=== PATIENT | female | born 1980 | race African-American/Black ===

== ENCOUNTER 2018-07-18 15:19 | Emergency (ER) | payer MEDICAID ==
[~2018-07-18] VITALS: Ht 167.6 cm; Wt 74.8 kg
[2018-07-18 15:13] VITALS: BP 135/96
[2018-07-18] MEDS ORDERED: LORazepam Inj 2mg/ml 1ml IV ONE ×2 (15:45→17:00)
[2018-07-18 16:17] LABS: APPEARANCE,URINE SLIGHTLY CLOUDY; BILIRUBIN, URINE NEGATIVE (NEGATIVE); COLOR,URINE BROWN; GLUCOSE, URINE (UA) NEGATIVE (NEGATIVE); KETONES,URINE 2+ (NEGATIVE); LEUKOCYTE ESTERASE ,URINE 2+ (NEGATIVE); NITRITE,URINE NEGATIVE (NEGATIVE); PH,URINE 6.5 (4.5-8.0); PROTEIN,URINE 4+ (NEGATIVE); UROBILINOGEN,URINE 1 MG/DL (0.0-1.0)
[2018-07-18 16:26] LABS: HEMOGLOBIN 11.3 G/DL (12.0-16.0); MEAN CORPUSCULAR VOLUME 86 FL (80-99); PLATELET COUNT 76 K/UL (150-450); RED BLOOD COUNT 4.19 M/UL (4.20-5.40); RED CELL DISTRIBUTION WIDTH 19.1 % (11.6-14.8); WHITE BLOOD COUNT 3.8 K/UL (4.8-10.8)
--- NOTE | 2018-07-18 16:29 | Emergency Room Report ---
History of Present Illness General Chief Complaint: Seizure Source: Patient, EMS Present Illness HPI 38-year-old female presents ED for evaluation. Patient is status post seizure. Witnessed at home today. Patient fell and hit her head. Denies any incontinence. Denies any tongue injury. Patient states that her hand is still shaking. Notes she drinks alcohol every single day. Denies drug use. Denies any headache. Denies any chest pain or shortness of breath. Denies any. No other aggravating relieving factors. Denies any other associated symptoms Allergies: Coded Allergies: UNABLE TO ASSESS (Unverified , 07/18/18) PT STATED "I DON'T REMEMBER" Patient History Past Medical History: seizures Past Surgical History: none Pertinent Family History: none Social History: Reports: alcohol use; Denies: smoking, drug use Last Menstrual Period: 07/07/18 Now: No Immunizations: UTD Reviewed Nursing Documentation: PMH: Agreed; PSxH: Agreed Nursing Documentation-PMH Past Medical History: No History, Except For Hx Cerebrovascular Accident: No - SUBSTANCE ABUSE Hx Seizures: Yes Review of Systems All Other Systems: negative except mentioned in HPI Physical Exam Vital Signs Date Time Temp Pulse Resp B/P (MAP) Pulse Ox O2 Delivery O2 Flow Rate FiO2 07/18/18 15:03 99.0 62 14 132/85 99 Room Air Sp02 EP Interpretation: reviewed, normal General Appearance: no apparent distress, alert, GCS 15, non-toxic Head: normocephalic, atraumatic Eyes: bilateral eye normal inspection, bilateral eye PERRL ENT: hearing grossly normal, normal pharynx, no angioedema, normal voice Neck: full range of motion, supple/symm/no masses Respiratory: chest non-tender, lungs clear, normal breath sounds, speaking full sentences Cardiovascular #1: regular rate, rhythm, no edema Cardiovascular #2: 2+ carotid (R), 2+ carotid (L), 2+ radial (R), 2+ radial (L) , 2+ dorsalis pedis (R), 2+ dorsalis pedis (L) Gastrointestinal: normal bowel sounds, non tender, soft, non-distended, no guarding, no rebound Rectal: deferred Genitourinary: normal inspection, no CVA tenderness Musculoskeletal: back normal, gait/station normal, normal range of motion, non- tender Neurologic: alert, oriented x3, responsive, motor strength/tone normal, sensory intact, speech normal Psychiatric: judgement/insight normal, mood/affect normal, no suicidal/ homicidal ideation, anxious Reflexes: 3+ bicep (R), 3+ bicep (L), 3+ tricep (R), 3+ tricep (L), 3+ knee (R) , 3+ knee (L) Skin: normal color, no rash, warm/dry, well hydrated Lymphatic: no adenopathy Medical Decision Making Diagnostic Impression: Primary Impression: Alcohol withdrawal seizure Qualified Codes: F10.239 - Alcohol dependence with withdrawal, unspecified; R56.9 - Unspecified convulsions Additional Impressions: Hypokalemia UTI (urinary tract infection) Qualified Codes: N39.0 - Urinary tract infection, site not specified ER Course Hospital Course 38-year-old female presents ED complaining of shaking, stating she is in withdrawal. had seizure today with head injury Differential diagnoses include: Alcohol intoxication, drug abuse, opioid withdrawal, alcohol withdrawal, dehydration, drug seeking behavior Clinical course Patient placed on stretcher. On monitoring tech. After initial history and physical I ordered labs, IV fluids, Ativan, CT head Labs reviewed- K 2.7, hemoglobin/hematocrit stable, no leukocytosis, alcohol level negative, aspirin/Tylenol levels negative, U. tox negative CT head negative Patient given multiple rounds of Ativan with symptoms improved. Patient continues to be tremulous with episodes of tachycardia. Patient would benefit from inpatient admission. Because of insurance patient will be transferred i. I feel this is a highly complex case requiring extensive working including EKG/Rhythm strip, Xray/CT/US, Blood/urine lab work, repeat exams while in ED, and administration of strong opiates/narcotics for pain control, admission to hospital or close patient follow up. Diagnosis - alcohol withdrawal seizure, hypokalemia, UTI transferred in serious condition Labs Test 07/18/18 16:00 White Blood Count 3.8 K/UL (4.8-10.8) Red Blood Count 4.19 M/UL (4.20-5.40) Hemoglobin 11.3 G/DL (12.0-16.0) Hematocrit 36.0 % (37.0-47.0) Mean Corpuscular Volume 86 FL (80-99) Mean Corpuscular Hemoglobin 26.9 PG (27.0-31.0) Mean Corpuscular Hemoglobin Concent 31.2 G/DL (32.0-36.0) Red Cell Distribution Width 19.1 % (11.6-14.8) Platelet Count 76 K/UL (150-450) Mean Platelet Volume 8.1 FL (6.5-10.1) Neutrophils (%) (Auto) % (45.0-75.0) Lymphocytes (%) (Auto) % (20.0-45.0) Monocytes (%) (Auto) % (1.0-10.0) Eosinophils (%) (Auto) % (0.0-3.0) Basophils (%) (Auto) % (0.0-2.0) Differential Total Cells Counted 100 Neutrophils % (Manual) 86 % (45-75) Lymphocytes % (Manual) 12 % (20-45) Monocytes % (Manual) 2 % (1-10) Eosinophils % (Manual) 0 % (0-3) Basophils % (Manual) 0 % (0-2) Band Neutrophils 0 % (0-8) Platelet Estimate Decreased Platelet Morphology Normal Anisocytosis 2+ Urine Color Brown Urine Appearance Slightly cloudy Urine pH 6.5 (4.5-8.0) Urine Specific [place] 1.010 (1.005-1.035) Urine Protein 4+ (NEGATIVE) Urine Glucose (UA) Negative (NEGATIVE) Urine Ketones 2+ (NEGATIVE) Urine Blood 5+ (NEGATIVE) Urine Nitrite Negative (NEGATIVE) Urine Bilirubin Negative (NEGATIVE) Urine Urobilinogen 1 MG/DL (0.0-1.0) Urine Leukocyte Esterase 2+ (NEGATIVE) Urine RBC 2-4 /HPF (0 - 2) Urine WBC 2-4 /HPF (0 - 2) Urine Squamous Epithelial Cells Moderate /LPF (NONE/OCC) Urine Bacteria Moderate /HPF (NONE) Urine HCG, Qualitative Negative (NEGATIVE) Sodium Level 134 MMOL/L (136-145) Potassium Level 2.7 MMOL/L (3.5-5.1) Chloride Level 95 MMOL/L (98-107) Carbon Dioxide Level 27 MMOL/L (21-32) Anion Gap 12 mmol/L (5-15) Blood Urea Nitrogen 6 mg/dL (7-18) Creatinine 0.8 MG/DL (0.55-1.30) Estimat Glomerular Filtration Rate > 60 mL/min (>60) Glucose Level 108 MG/DL (74-106) Calcium Level 9.2 MG/DL (8.5-10.1) Total Bilirubin 0.9 MG/DL (0.2-1.0) Aspartate Amino Transf (AST/SGOT) 130 U/L (15-37) Alanine Aminotransferase (ALT/SGPT) 37 U/L (12-78) Alkaline Phosphatase 131 U/L (46-116) Total Protein 9.4 G/DL (6.4-8.2) Albumin 3.4 G/DL (3.4-5.0) Globulin 6.0 g/dL Albumin/Globulin Ratio 0.6 (1.0-2.7) Salicylates Level 3.0 ug/mL (2.8-20) Urine Opiates Screen Negative (NEGATIVE) Acetaminophen Level < 2 MCG/ML (10-30) Urine Barbiturates Screen Negative (NEGATIVE) Phencyclidine (PCP) Screen Negative (NEGATIVE) Urine Amphetamines Screen Negative (NEGATIVE) Urine Benzodiazepines Screen Negative (NEGATIVE) Urine Cocaine Screen Negative (NEGATIVE) Urine Marijuana (THC) Screen Negative (NEGATIVE) Serum Alcohol < 3 mg/dL CT/MRI/US Diagnostic Results CT/MRI/US Diagnostic Results : Imaging Test Ordered: CT Head Impression no acute process Last Vital Signs Date Time Temp Pulse Resp B/P (MAP) Pulse Ox O2 Delivery O2 Flow Rate FiO2 07/18/18 15:13 92 14 Room Air 07/18/18 15:13 100.1 135/96 98 Status: improved Disposition: XFER SHT-TRM HOSP Condition: Serious John Kennedy MD Jul 18, 2018 16:29
[2018-07-18 16:34] LABS: ALANINE AMINOTRANSFERASE 37 U/L (12-78); ALBUMIN 3.4 G/DL (3.4-5.0); ALBUMIN/GLOBULIN RATIO 0.6 (1.0-2.7); ALKALINE PHOSPHATASE 131 U/L (46-116); ANION GAP 12 mmol/L (5-15); ASPARTATE AMINO TRANSFERASE 130 U/L (15-37); BILIRUBIN,TOTAL 0.9 MG/DL (0.2-1.0); BLOOD UREA NITROGEN 6 mg/dL (7-18); CALCIUM 9.2 MG/DL (8.5-10.1); CARBON DIOXIDE 27 MMOL/L (21-32); CHLORIDE 95 MMOL/L (98-107); CREATININE 0.8 MG/DL (0.55-1.30); SODIUM 134 MMOL/L (136-145)
--- NOTE | 2018-07-18 16:34 | Diagnostic Imaging Report ---
Indication: Fall, pain, seizure Technique: Continuous helical CT scanning of the head was performed without intravenous contrast material. Axial and coronal 5 mm sections were generated. Radiation dose was minimized using automated exposure control Dose: Total Dose Length Product - DLP 2111.[address] Dose Index - CTDIvol(s) 70.38,70.38 mGy. Comparison: none Findings: The ventricular system is normal in size and configuration. There is no shift of midline structures. No abnormal extra-axial fluid collections are noted. There is no evidence of intracerebral bleeding. No other abnormal high or low density areas are noted within the brain. The visualized sinuses are clear. The visualized orbits are unremarkable. The mastoids are clear. The calvarium is intact. The chery-white differentiation is normal. Impression: Normal CT scan of the head without contrast material. The CT scanner at [facility] is accredited by the [employer] and the scans are performed using protocols designed to limit radiation exposure to as low as reasonably achievable to attain images of sufficient resolution adequate for diagnostic evaluation.
[2018-07-18 16:38] LABS: POTASSIUM 2.7 MMOL/L (3.5-5.1)
[2018-07-18] MEDS ORDERED: cefTRIAXone 1 GM in NS 55 ML IVPB ONE (17:00)
[2018-07-18 17:09] VITALS: BP 122/90
[2018-07-18 20:10] VITALS: BP 130/87
[2018-07-18 20:30] VITALS: BP 130/87
== END 2018-07-18 20:30 | disposition short-term general hospital (02) ==
LOC: EDBD 15:19 → EMR 15:50
DX: F10.239 Alcohol dependence with withdrawal, unspecified (principal); R56.9 Unspecified convulsions; E87.6 Hypokalemia; N39.0 Urinary tract infection, site not specified
CPT/HCPCS: 36415; 70450; 80053; 80307; 80329; 81003; 81025; 85007; 85025; 87086; 96361; 96365; 96375; 99285; J0696; J8499

== ENCOUNTER 2019-10-17 06:02 | Day surgery (SDC) | payer MEDICAID ==
--- NOTE | 2019-10-15 11:48 | Opthalmology H&P ---
Ophthalmology H&P H&P Chief Complaint: decreased vision in left eye HPI Vision Affects Ability to: read, focus/use eyes together, manage personal affairs Past Ocular History: retinal problems - PRD OU HPI Narrative Blurry vision Exam Visual Acuity: OD 20/60 OS Counting Fingers Tension: OD 16 OS 16 Eye Exam: normal OU: external exam, palpebral fissure-width, marginal reflex distance, levator function, corneas, anterior chambers, fundus exam; findings: lens - NS OD, NS/PSC OS Assessment/Plan Treatment Plan: cataract extraction w/ lens implant - left eye Goals of Treatment: improvement of vision, enhance quality of life Attestation Attestation The risks and benefits of the surgery as well as alternative procedures were explained to the patient in detail. Julius Rush MD Oct 15, 2019 11:48
--- NOTE | 2019-10-15 11:52 | Pre-Procedure Note/Attestation ---
Pre-Procedure Note/Attestation Complete Prior to Procedure Planned Procedure: left Procedure Narrative: Cataract Extraction With Intraocular Lens Implant Left Eye Indications for Procedure Pre-Operative Diagnosis: Nuclear sclerotic/Posterior subcapsular cataract left eye Attestation I attest that I discussed the nature of the procedure; its benefits; risks and complications; and alternatives (and the risks and benefits of such alternatives ), prior to the procedure, with the patient (or the patient's legal car sales representative). I attest that, if there was a reasonable possibility of needing a blood transfusion, the patient (or the patient's legal car sales representative) was given the [facility] standardized written summary, pursuant to the Shlomo Cardiff Blood Safety Act ([place] Health and Safety Code # 1645, as amended). I attest that I re-evaluated the patient just prior to the surgery and that there has been no change in the patient's H&P, except as documented below: Julius Rush MD Oct 15, 2019 11:52
[~2019-10-17] VITALS: Ht 167.6 cm; Wt 55.3 kg
[2019-10-17] VITALS (9 sets, daily range): BP systolic 104–129; BP diastolic 52–85
[2019-10-17] MEDS ORDERED: Dexamethasone 4mg/ml vial ONE (07:00)
[2019-10-17] MEDS ORDERED: prednisoLONE acetate 1% Opth Susp 1ml ONE (07:00)
[2019-10-17] MEDS ORDERED: Tetracaine 0.5% Opth 4ml Soln LEFT EYE ONE (07:00)
[2019-10-17] MEDS ORDERED: Diclofenac Sod 0.1% Op Soln LEFT EYE SCH (07:00)
[2019-10-17] MEDS ORDERED: Polysporin Oint 15gm TOPIC ONE (07:00)
[2019-10-17] MEDS ORDERED: Akten 3.5% 1ml Btl LEFT EYE ONE (07:00)
[2019-10-17] MEDS ORDERED: Proparacaine 0.5% Opth Soln 15ml LEFT EYE ONE (07:00)
[2019-10-17] MEDS ORDERED: EPINEPHrine 1mg/1ml Amp ONE (07:23)
[2019-10-17] MEDS ORDERED: acetaZOLAMIDE 500mg Inj ONE (07:23)
[2019-10-17] MEDS ORDERED: Lidocaine 4% Amp 5ml ONE (07:23)
[2019-10-17] MEDS ORDERED: Lidocaine 2% MPF 5ml Vial INJ ONE (07:23)
[2019-10-17] MEDS ORDERED: Carbachol 0.01% Op Soln 1.5ml vial ONE (07:23)
[2019-10-17] MEDS ORDERED: BSS 500ml btl ONE (07:24)
[2019-10-17] MEDS ORDERED: BSS 15ml BTL ONE (07:24)
[2019-10-17] MEDS ORDERED: Povidone-Iodine 5% opth solution ONE (07:24)
[2019-10-17] MEDS ORDERED: Sodium Hyaluronate 10 mg/ml 0.85ml ONE ×2 (07:24→10:01)
[2019-10-17] MEDS ORDERED: Bupivacaine 0.75% 30ml vial INJ ONE (07:24)
[2019-10-17] MEDS: Tropicamide 1% Opth 15ml Soln LEFT EYE SCH ×3 (07:43→08:04)
[2019-10-17] MEDS: Cyclopentolate 1% Opth Sol 2ml LEFT EYE SCH ×3 (07:43→08:03)
[2019-10-17] MEDS: Tobramycin Op Soln 0.3% 5ml LEFT EYE SCH ×3 (07:43→08:04)
[2019-10-17] MEDS: Phenylephrine 10% Opth Soln 5ml LEFT EYE SCH ×3 (07:44→08:04)
[2019-10-17] MEDS ORDERED: IBUPROFEN600 MG ORAL (08:02)
[2019-10-17] MEDS ORDERED: LEXAPRO10 MG ORAL (08:02)
[2019-10-17] MEDS ORDERED: TOPAMAX25 MG ORAL (08:02)
[2019-10-17] MEDS ORDERED: IRON325 M1 PO (08:02)
[2019-10-17] MEDS ORDERED: GENVOYA TABLET1 EACH PO (08:02)
[2019-10-17] MEDS ORDERED: Midazolam 2mg/2ml Inj ONE (08:14)
[2019-10-17] MEDS ORDERED: LR 1000ml ONE (09:00)
[2019-10-17] MEDS ORDERED: Propofol 200mg/20ml IV ONE (09:00)
[2019-10-17] MEDS ORDERED: fentaNYL 100 mcg/2 mL IV ONE (09:00)
[2019-10-17] MEDS ORDERED: Sterile Water Irrig 1000ml IRRIG ONE (09:00)
[2019-10-17] MEDS ORDERED: NS Irrig 1000ml ONE (09:00)
[2019-10-17] MEDS ORDERED: fentaNYL 100 mcg/2 mL IV PRN (09:30)
[2019-10-17] MEDS ORDERED: LR 1000ml 1,000 ML IVLG SCH (09:30)
--- NOTE | 2019-10-17 09:30 | Anethesia Preoperative Eval ---
Anesthesia Pre-op PMH/ROS General Date of Evaluation: Oct 17, 2019 Time of Evaluation: 09:02 Anesthesiologist: Chace ASA Score: ASA 2 Mallampati Score Class I : Soft palate, uvula, fauces, pillars visible Class II: Soft palate, uvula, fauces visible Class III: Soft palate, base of uvula visible Class IV: Only hard plate visible Mallampati Classification: Class II Surgeon: Adri Diagnosis: L eye cataract Surgical Procedure: cataract extraction Anesthesia History: none Social History: current smoker Family History: no anesthesia problems Allergies: Coded Allergies: No Known Allergies (Unverified , 10/15/19) Medications: see eMAR Patient NPO?: Yes Past Medical History Cardiovascular: Denies: HTN, CAD, MD, valve dz, arrhythmia, other Pulmonary: Denies: asthma, COPD, JAYCOB, other Gastrointestinal/Genitourinary: Reports: GERD; Denies: CRI, ESRD, other Neurologic/Psychiatric: Reports: depression/anxiety; Denies: dementia, CVA, TIA, other Endocrine: Denies: DM, hypothyroidism, steroids, other HEENT: Reports: cataract (L); Denies: cataract (R), glaucoma, [place] (L), [place] (R), other Hematology/Immune: Reports: anemia - mild, other - HIV + Musculoskeletal/Integumentary: Denies: OA, RA, DJD, DDD, edema, other PMH Narrative: as above PSxH Narrative: Anesthesia Pre-op Phys. Exam Physician Exam Last Vital Signs Date Time Temp Pulse Resp B/P (MAP) Pulse Ox O2 Delivery O2 Flow Rate FiO2 10/17/19 08:06 Room Air 10/17/19 07:53 97.2 95 18 111/69 97 Constitutional: NAD Neurologic: CN 2-12 intact Cardiovascular: RRR, no M/R/G Respiratory: CTA Gastrointestinal: S/NT/ND Airway Exam Mallampati Score: Class II MO: full Neck: flexible ROM: full Teeth: intact Dentures: no upper, no lower Anesthesia Pre-op A/P Labs see chart Urine Test Test 10/17/19 06:25 Urine HCG, Qualitative Negative (NEGATIVE) Studies Pre-op Studies: EKG - NSR Risk Assessment & Plan Assessment: ASA 2 Plan: MAC Status Change Before Surgery: No Raul Mas MD Oct 17, 2019 09:30
--- NOTE | 2019-10-17 10:03 | Immediate Post-Op Evaluation ---
Immediate Post-Op Evalulation Immediate Post-Op Evalulation Procedure: L eye cataract extraction with IOL Date of Evaluation: Oct 17, 2019 Time of Evaluation: 10:02 IV Fluids: 400 Blood Products: none Estimated Blood Loss: none Urinary Output: `none Blood Pressure Systolic: 112 Blood Pressure Diastolic: 56 Pulse Rate: 82 Respiratory Rate: 20 O2 Sat by Pulse Oximetry: 99 Temperature (Fahrenheit): 97.6 Pain Score (1-10): 1 Nausea: No Vomiting: No Complications none Patient Status: awake, patent, none Hydration Status: adequate Raul Mas MD Oct 17, 2019 10:03
--- NOTE | 2019-10-17 11:55 | 48 Hour Post Anesthesia Eval ---
Post Anesthesia Evaluation Procedure: L eye cataract extraction with IOL Date of Evaluation: Oct 17, 2019 Time of Evaluation: 10:52 Blood Pressure Systolic: 104 0: 62 Pulse Rate: 78 Respiratory Rate: 20 Temperature (Fahrenheit): 97.8 O2 Sat by Pulse Oximetry: 98 Airway: patent Nausea: No Vomiting: No Pain Intensity: 1 Hydration Status: adequate Cardiopulmonary Status: stable Mental Status/LOC: patient returned to baseline Follow-up Care/Observations: n/a Post-Anesthesia Complications: none Follow-up care needed: ready to discharge Raul Mas MD Oct 17, 2019 11:55
--- NOTE | 2019-10-22 11:08 | Brief Operative Note ---
Immediate Post Operative Note Operative Note Chief Complaint: Blurry vision Pre-op Diagnosis: Nuclear sclerotic/Posterior subcapsular cataract left eye Procedure: Cataract extraction with intraocular lens implant left eye Post-op Diagnosis: Pseudophakia OS Findings: consistent w/pre-op dx studies, other - Persistent posterior capsule opacification left eye. Surgeon: Julius Rush MD Anesthesiologist: Raul Mas MD Anesthesia: MAC Specimen: none Complications: none Condition: stable Fluids: LR Estimated Blood Loss: none Drains: none Implant(s) used?: Yes - IOL OS Julius Rush MD Oct 22, 2019 11:08
--- NOTE | 2019-10-22 11:12 | Operative Note - PDOC ---
Operative Note Operative Note Date of Operation/Procedure: Oct 17, 2019 Chief Complaint: Blurry vision Pre-op Diagnosis: Nuclear sclerotic/Posterior subcapsular cataract left eye Procedure: Cataract extraction with intraocular lens implant left eye Post-op Diagnosis: Pseudophakia OS Operative Findings: consistent w/pre-op dx studies, other - Persistent posterior capsule opacification left eye. Surgeon: Julius Rush MD Anesthesiologist: Raul Mas MD Anesthesia: MAC Specimen: none Complications: none Condition: stable Fluids: LR Estimated Blood Loss: none Drains: none Implant(s) used?: Yes - IOL- OS Indications for Procedure Nuclear sclerotic/Posterior subcapsular cataract left eye Description of Procedure This patient has been complaining visually significant cataract in the left eye with the best corrected visual acuity of hand motion. The patient complains of difficulties in performing activities of daily living and wants to manage personal affairs with comfort and accuracy to see well enough to move with safety at home and outdoors independently. The risks, benefits and alternatives of the procedure were discussed with the patient in the office prior to scheduling surgery. All questions from the patient were answered after the surgical procedure was explained in detail. The risks of the procedure as explained to the patient include, but are not limited to, pain, infection, bleeding, loss of vision, retinal detachment, need for further surgery, loss of lens nucleus, double vision, etc. Alternative procedures were discussed which include, to do nothing or seek a second opinion. Informed consent for this procedure was obtained from the patient. The patient was referred to a primary care physician for a cardiopulmonary clearance prior to surgery, after proper evaluation was done patient was properly scheduled for outpatient surgery. The patient was brought to the operating room where the anesthesiologist established I.V. lines and cardiac monitoring leads. Mild intravenous sedation was administered. The patient was then prepared with a 5% solution of povidone -iodine to the conjunctival fornix and lashes, and a 5% solution of povidone- iodine to the lids and periorbital skin. The patient was then draped in the usual sterile fashion. A lid speculum was then placed in the operative eye. A keratome blade was then used to create a biplanar incision into the anterior chamber. Viscoelastics was then instilled into the anterior chamber. A capsulorrhexis was then fashioned with an utrata forceps. BSS and a cannula were then used to hydrodissect and hydro delineate the lens. Paracentesis incision was made at 3 o'clock with sharp blade. The phacoemulsification unit, after being properly adjusted and tested, was then used to emulsify the nucleus. Residual cortical material was aspirated with the irrigation and aspiration unit. Healon was then instilled into the anterior chamber. The corneal wound was then enlarged to the size of the optic with the shayna keratome blade. The intraocular lens was then inspected for right power and size and thought to be satisfactory. Then the lens was gently placed in the capsular bag. Positioning within the capsular bag was confirmed by direct visualization. Optic centration was accomplished with a [place] hook. Viscoelastics was removed from the anterior chamber using the irrigation and aspiration unit. The corneal wound was then tested for leaks and none were found. The lid speculum were then removed. Sponge and needle counts were correct. An eye patch and shield were placed over the operative eye. The patient was taken to the recovery room in stable condition. There were no complications. The patient tolerated the procedure well. The patient was then transferred to the ambulatory surgery unit in stable and satisfactory condition , was given detailed written instructions and asked to follow up in the office the next day. Julius Rush MD Oct 22, 2019 11:12
== END 2019-10-17 13:15 | disposition home or self-care (01) ==
LOC: SUR 06:02
DX: H25.12 Age-related nuclear cataract, left eye (principal); H25.042 Posterior subcapsular polar age-related cataract, left eye
CPT/HCPCS: 66984; 81025; J0171; J1100; J1120; J2250; J2704; J3010; J3370; J7120; V2632; Z7512; 94003; 94150